=== PATIENT | female | born 1950 | race Two or more races ===

== ENCOUNTER 2019-08-21 07:21 | Day surgery (SDC) | payer OTHER ==
[~2019-08-21 07:21] MED LIST: ALDACTONE25 MG PO; COZAAR100 MG PO; DOXAZOSIN MESYLA2 MG PO; LIPITOR40 M1 PO; NIFEDIPINE ER60 MG PO; PROTONIX40 MG PO; TOPROL XL25 M1 PO
[2019-08-21] MEDS ORDERED: IBU600 MG PO (16:01)
== END 2019-08-21 18:30 | disposition home or self-care (01) ==
LOC: CIR.AMB 07:21
PROVIDERS: ATTEND Obstetrics & Gynecology Gynecology
DX: C54.8 Malignant neoplasm of overlapping sites of corpus uteri (principal)